=== PATIENT | male | born 1995 ===

== ENCOUNTER → 2024-04-16 | Outpatient (CLI) | payer MEDICAID | END | disposition home or self-care (01) | LOC: Rad HDHVI 08:13 | PROVIDERS: ATTEND Internal Medicine Cardiovascular Disease | DX: R94.31 Abnormal electrocardiogram [ECG] [EKG] (principal) | CPT/HCPCS: 93306 ==

== ENCOUNTER → 2024-04-21 | Outpatient (CLI) | payer MEDICAID ==
[~2024-04-21] VITALS: Ht 175.3 cm; Wt 136.5 kg
--- NOTE | 2024-04-24 14:25 | DVHSR ---
APPROVED REPORT Exam: Nuclear Stress Test Indication: Abnormal EKG Ht: 5 ft 9 in Wt: 301 lbs BSA: 2.46 m2 HR: 87 bpm BP: 149/90 mmHg BMI: 44.44 Rhythm: NSR, RBBB Medical History Medical History: HTN, Diabetes, Hypercholesterolemia Medications: Metformin, Farxiga, Losartan, Tramadol, Ondansetron, Vit D2, Glipizide, Rosuvastatin Allergies: No known drug allergies Stress Test Details Stress Test: Exercise stress testing was performed using a Jaron protocol. HR Resting HR: 87 bpmMax Heart Rate (APMHR): 190.617260 bpm Max HR Achieved: 160 bpmTarget HR (85% APMHR): 161.823821 bpm % of APMHR: 84.21 Recovery HR: 108 bpm HR response to stress: Normal HR response to stress BP Resting BP: 149/90 mmHg Max BP: 187/67 mmHg Recovery BP: 157/67 mmHg BP response to stress: Resting hypertension- exaggerated response. ECG Resting ECG: Sinus Rhythm, RBBB Stress ECG: Sinus Tachycardia Arrhythmia: APC's, VPC's Recovery ECG: Sinus Tachycardia Clinical Reason for Termination: Dyspnea, Fatigue Stress Symptoms: Dyspnea Exercise duration: 6 min 30 sec Exercise capacity: 7.9 METs Dyspnea subsided during recovery. Stress ECG Conclusion LESS THAN 10% LIKELIHODD FOR STRESS INDUCED ISCHEMIA NON ISCHEMIC ECG RESPONUSE NON ISCHEMIC CLINICAL RESPONSE EF >55% NM EXAM: Myocardial Perfusion REST/STRESS Imaging Protocol: Rest Tc-99m/Stress Tc-99m 1 day Resting Data Rest SPECT myocardial perfusion imaging was performed in supine position 30 minutes following the int ravenous injection of 10.7 mCi of Tc-99m Sestamibi. Time of rest injection: 817 Time of rest imagin Administration Route: IV Administration Site: Left AC Exercise Stress At peak stress, the patient was injected intravenously with 30.2 mCi of Tc-99m Sestamibi. Time of stress injection: 927 Time of stress imagin Administration Route: IV Administration Site: Left AC Heart Rate at time of stress injection: 160 bpm. Patient continued to exercise for 0.5 minute(s). Gated Stress SPECT was performed 15 minutes after stress injection. The images were gated to evaluate regional wall motion and calculate left ventricular ejection fracti on. Comments Cardiolite injection at 6 minutes into test. Study Data Post stress, the left ventricular ejection was >55%.. Nuclear Conclusion LESS THAN 10% LIKELIHODD FOR STRESS INDUCED ISCHEMIA NON ISCHEMIC ECG RESPONUSE NON ISCHEMIC CLINICAL RESPONSE EF >55%
== END | disposition home or self-care (01) ==
LOC: Rad HDHVI 08:10
PROVIDERS: ATTEND Internal Medicine Cardiovascular Disease
DX: I49.3 Ventricular premature depolarization (principal); I49.1 Atrial premature depolarization; R00.0 Tachycardia, unspecified; I45.10 Unspecified right bundle-branch block; I10 Essential (primary) hypertension; E11.9 Type 2 diabetes mellitus without complications; E78.00 Pure hypercholesterolemia, unspecified; R94.31 Abnormal electrocardiogram [ECG] [EKG]; Z68.41 Body mass index [BMI] 40.0-44.9, adult
CPT/HCPCS: 78452; 93017; 96374; A9500